=== PATIENT | female | born 1990 | race Caucasian/White ===

== ENCOUNTER 2017-08-21 19:19 | Emergency (ER) | payer MEDICAID, OTHER ==
[2017-08-21] MEDS ORDERED: Ketorolac Tromethamine 60 MG/2 ML VIAL ONE (19:56)
[2017-08-21] MEDS ORDERED: Amoxicillin/Potassium Clav 875 MG TAB ONE (19:57)
== END 2017-08-21 20:21 | disposition home or self-care (01) ==
LOC: MADERS 19:19
DX: K03.81 Cracked tooth (principal); F17.210 Nicotine dependence, cigarettes, uncomplicated; F41.9 Anxiety disorder, unspecified; F32.9 Major depressive disorder, single episode, unspecified
CPT/HCPCS: 96372; J1885